=== PATIENT | female | born 1995 | race Caucasian/White ===

== ENCOUNTER 2016-11-15 12:11 | Emergency (ER) | payer OTHER ==
[2016-11-15 12:16] VITALS: BP 143/59
--- NOTE | 2016-11-15 12:36 | ER Document Report ---
HPI - HPI Pain Level: 2 Context: Patient is a 16 week gestation 20-year-old female who presents emergency department complaining of 1 week of sinus congestion, sore throat and low-grade fevers. She states that the highest her temp is been has been 100.3 and responded to Tylenol. She denies taking any other medications. Patient states that she has not had any recent exposure to any sick people that she is aware of but she was recently on a plane coming from [place] to visit her fianc. Otherwise she denies any nausea, vomiting, abdominal pain, pelvic pain , vaginal bleeding, vaginal pain. - DERM Skin Color: Normal, [place] Past Medical History - Social History Smoking Status: Never Smoker Family History: Reviewed & Not Pertinent Patient has suicidal ideation: No Patient has homicidal ideation: No Renal/ Medical History: Denies: Hx Peritoneal Dialysis Vertical Provider Document - CONSTITUTIONAL Agree With Documented VS: Yes Exam Limitations: No Limitations General Appearance: WD/WN, No Apparent Distress - INFECTION CONTROL TRAVEL OUTSIDE OF THE [place] IN LAST 30 DAYS: No - HEENT HEENT: Atraumatic, Normal ENT Exam, Normocephalic, PERRLA - NECK Neck: Normal Inspection. negative: Lymphadenopathy-Left, Lymphadenopathy-Right - RESPIRATORY Respiratory: Breath Sounds Normal, No Respiratory Distress, Chest Non-Tender. negative: Rales, Rhonchi, Wheezing O2 Sat by Pulse Oximetry: 98 - CARDIOVASCULAR Cardiovascular: Regular Rate, Regular Rhythm, No Murmur Pulses: Normal: Radial - GI/ABDOMEN Gastrointestinal: Abdomen Soft, Abdomen Non-Tender, No Organomegaly, Normal Bowel Sounds Notes: heart tones 164 - MUSCULOSKELETAL/EXTREMETIES Musculoskeletal/Extremeties: MAEW, FROM, Non-Tender, No Edema. negative: Eccymosis - NEURO Level of Consciousness: Awake, Alert, Appropriate Motor/Sensory: No Motor Deficit, No Sensory Deficit - DERM Integumentary: Warm, Dry, No Rash Course - Re-evaluation Re-evalutation: 11/15/16 12:35 Patient is a 20-year-old female who is hemodynamically stable, no acute distress and afebrile. Presentation of well-appearing woman with nasal congestion, cough, without additional symptoms. She has tolerated oral intake here in the emergency department and at home. No evidence of dehydration on examination. Vitals normal at the time of my assessment. I do not suspect an acute meningitis, strep pharyngitis, pneumonia, croup, or bacterial tracheitis present clinical history and examination. Patient will be discharged home with recommendations PO fluids, antipyretics, return precautions, and followup recommendations. Patient in agreement and have verbalized understanding of the plan. - Vital Signs Vital signs: Temp Pulse Resp BP Pulse Ox 98.5 F 88 18 143/59 H 98 11/15/16 12:12 11/15/16 12:12 11/15/16 12:12 11/15/16 12:12 11/15/16 12:12 Discharge - Discharge Clinical Impression: Nasal congestion Condition: Good Disposition: HOME, SELF-CARE Instructions: Viral Syndrome ([facility]) Additional Instructions: Please consult your handout regarding medications safe to take during , otherwise follow up with your PHOTO FINISH PHOTOGRAPHER as scheduled
[2016-11-15] MEDS ORDERED: ACETAMINOPHEN 325 MG TABLET PO ONE (13:41)
[2016-11-15] MEDS ORDERED: PSEUDOEPHEDRINE HCL 30 MG TABLET PO ONE (13:41)
== END 2016-11-15 14:04 | disposition home or self-care (01) ==
LOC: ER 12:11
DX: O26.892 Other specified pregnancy related conditions, second trimester (principal); R09.81 Nasal congestion; R50.9 Fever, unspecified; O99.512 Diseases of the respiratory system complicating pregnancy, second trimester; J02.9 Acute pharyngitis, unspecified; Z3A.16 16 weeks gestation of pregnancy
CPT/HCPCS: 87070; 87804; 87880; 99283

== ENCOUNTER 2018-06-04 23:09 | Emergency (ER) | payer OTHER ==
[2018-06-05] MEDS ORDERED: ERYTHROMYCIN 0.5% OPH OINT 1 GM UNIT DOSE OD ONE (00:54)
--- NOTE | 2018-06-05 01:05 | ER Document Report ---
HPI - HPI Patient complains to provider of: right eye d/c Time Seen by Provider: 06/05/18 00:47 Pain Level: 3 Context: Patient is an otherwise healthy 22-year-old female presents to the emergency department for redness, discharge, irritation in her right eye. Patient states this morning she woke up with redness in her right eye, throughout the day has noted some mucoid discharge. Patient states that time she does have pain all over her right eye. Patient noted that her top lid has started to swell and her eye had teared more which is what prompted her visit to the emergency room. Patient is denying any foreign body sensation or trauma to the right eye. Patient's denying any fever, URI symptoms. Patient denies any allergies. - REPRODUCTIVE Reproductive: DENIES: : Past Medical History - General Information source: Patient - Social History Smoking Status: Never Smoker Lives with: Spouse/Significant other Family History: Reviewed & Not Pertinent Renal/ Medical History: Denies: Hx Peritoneal Dialysis Vertical Provider Document - CONSTITUTIONAL Agree With Documented VS: Yes Notes: GENERAL: Alert, interacts well. No acute distress. HEAD: Normocephalic, atraumatic. EYES: Pupils equal, round, and reactive to light. Extraocular movements intact and painless. No photophobia noted. Mucoid discharge noted right eye medial canthi, conjunctival injection noted. Slight chemosis also noted. Swelling noted to the right upper lid, no proptosis or surrounding erythema noted. ENT: Oral mucosa moist, tongue midline. NECK: Full range of motion. Supple. Trachea midline. LUNGS: Clear to auscultation bilaterally, no wheezes, rales, or rhonchi. No respiratory distress. HEART: Regular rate and rhythm. No murmur ABDOMEN: Soft, non-tender. Non-distended. Bowel sounds present in all 4 quadrants. EXTREMITIES: Moves all 4 extremities spontaneously. No edema, normal radial and dorsalis pedis pulses bilaterally. No cyanosis. BACK: no cervical, thoracic, lumbar midline tenderness. No saddle anesthesia, normal distal neurovascular exam. NEUROLOGICAL: Alert and oriented x3. Normal speech. cranial nerves II through XII grossly intact. PSYCH: Normal affect, normal mood. SKIN: Warm, dry, normal turgor. No rashes or lesions noted. - INFECTION CONTROL TRAVEL OUTSIDE OF THE [place] IN LAST 30 DAYS: No Course - Re-evaluation Re-evalutation: Patient was given her initial dose of besifloxacin in the emergency department. Prescription for levofloxacin also provided as needed. Very close return precautions discussed with patient. Should she experience more eyes swelling, eye erythema, painful extraocular motion or any other concerning symptoms she needs to immediately return to the emergency room. Patient voices understanding is stable for discharg Discharge - Discharge Clinical Impression: Conjunctivitis Qualifiers: Conjunctivitis type: acute Acute conjunctivitis type: bacterial Laterality: right Qualified Code(s): H10.31 - Unspecified acute conjunctivitis, right eye Chemosis of conjunctiva Qualifiers: Laterality: right Qualified Code(s): H11.421 - Conjunctival edema, right eye Condition: Stable Disposition: HOME, SELF-CARE Instructions: Conjunctivitis ([facility]) Additional Instructions: As we discussed you have been seen and treated in the emergency department for a bacterial infection of your right eye. This infection is consistent with conjunctivitis. Due to you being a contact lens wearer I have placed you on a specific antibiotic. Please use the antibiotic provided in the emergency department Besifloxacin for the next 7 days. Please instill 1 drop in your right eye 3 times daily for 7 days. I have also prescribed you levofloxacin. Please get this prescription filled should you lose the besifloxacin or have any other concerns. Also as we discussed it is very important that you should immediately return to the emergency room should your right eye become more swollen, developed redness, you have pain upon movement of your eyeball or have any other concerning symptoms. Please make sure you do not wear your contacts until you are finished with the 7-day treatment course. Please also make sure you throw away the contacts that you had in your eye today. Please make sure you follow-up with your stereotyper apprentice and again return to the emergency room should you have any other concerning symptoms Prescriptions: Levofloxacin 1 drop OD Q2 7 Days drops Forms: Return to Work
[2018-06-05] MEDS ORDERED: BESIFLOXACIN HCL 0.6% OPH SUSP 5 ML BOTTLE OD ONE (01:16)
[2018-06-05] MEDS ORDERED: BESIFLOXACIN HCL 0.6% OPH SUSP 5 ML BOTTLE ONE (01:38)
[2018-06-05 01:57] VITALS: BP 100/66
== END 2018-06-05 01:58 | disposition home or self-care (01) ==
LOC: ER 23:09
DX: H10.31 Unspecified acute conjunctivitis, right eye (principal); H11.421 Conjunctival edema, right eye; H57.11 Ocular pain, right eye
CPT/HCPCS: 99283